=== PATIENT | female | born 2000 | race Caucasian/White ===

== ENCOUNTER → 2023-01-28 | Emergency (ER) | payer OTHER ==
[~2023-01-28] VITALS: Ht 170.2 cm; Wt 61.7 kg
[~2023-01-28] MED LIST: ACETAMINOPHEN500 M1 PO; ZITHROMAX500 MG PO
== END | disposition home or self-care (01) ==
LOC: ER 12:32 → EMR PED 12:38
DX: O98.512 Other viral diseases complicating pregnancy, second trimester (principal); Z3A.17 17 weeks gestation of pregnancy